=== PATIENT | male | born 1995 | race Caucasian/White ===

== ENCOUNTER → 2024-12-15 11:02 | Outpatient (REF) | payer OTHER, SELFPAY | LOC: HWCARD 11:02 | PROVIDERS: FAMILY PHYSICIAN Family Medicine | DX: Z01.818 Encounter for other preprocedural examination (principal) | CPT/HCPCS: 93005 ==

== ENCOUNTER → 2024-12-17 10:14 | Outpatient (REF) | payer OTHER, SELFPAY | LOC: HWCARD 10:14 | PROVIDERS: FAMILY PHYSICIAN Family Medicine | DX: Z00.01 Encounter for general adult medical examination with abnormal findings (principal) | CPT/HCPCS: 93005 ==